=== PATIENT | female | born 1980 | race Caucasian/White ===

== ENCOUNTER 2023-02-06 07:14 | Emergency (ER) | payer BC ==
--- NOTE | 2023-02-06 07:45 | ERPHSYRPT ---
- History of Present Illness Source: patient Exam Limitations: other (Poor historian) Patient Subjective Stated Complaint: pt here for "dizzy spells" off and on for weeks, was seen by family doc and eye dr. she states it is worse, she states she feels unsteady when moves head to fast, Triage Nursing Assessment: pt alert,drove self here, walked in, resp easy, skin w/d/p. no edema, moves all ext well Physician History: 42 yo Wf w intermittent dizziness x 1 month. Pt denies focal weakness/headache/otalgia/fever/decreased hearing/palpitations/chest pain. She has seen her physician about this and states that "he has done nothing for her." and has also seen her "eye doctor." Pt suffers from chronic back pain. Timing/Duration: other (1+ month) Character of Deficits: other (Dizzy) Deficits: no difficulties Baseline/Normal Cognition: alert 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 Current Cognition: alert 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 Baseline Gait: walks w/o assistance Associated Symptoms: denies symptoms Allergies/Adverse Reactions: amoxicillin [From Augmentin] Allergy (Verified 02/06/23 07:28) clavulanic acid [From Augmentin] Allergy (Verified 02/06/23 07:28) Home Medications: Celecoxib 200 mg PO DAILY 02/06/23 [History] Furosemide 40 mg [Lasix 40 MG] 40 mg PO DAILY 02/06/23 [History] Oxycodone HCl/Acetaminophen [Oxycodone-Acetaminophn 7.5-325] 1 ea TID 02/06/23 [History] Phentermine HCl 1 ea DAILY 02/06/23 [History] Potassium Citrate [Potassium Citrate ER] 20 meq PO DAILY 02/06/23 [History] Hx Tetanus, Diphtheria Vaccination/Date Given: No Hx Influenza Vaccination/Date Given: No Hx Pneumococcal Vaccination/Date Given: No Immunizations Up to Date: Yes Travel Risk - International Travel Have you traveled outside of the country in past 3 weeks: No - Coronavirus Screening Are you exhibiting any of the following symptoms?: No - Vaccine Status Have you recieved a Covid-19 vaccination: No 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 - Vaccination Dates Date of 2cond Vaccination (if applicable): 2020 - Review of Systems Constitutional: No Symptoms Eyes: No Symptoms Ears, Nose, & Throat: No Symptoms Respiratory: No Symptoms Cardiac: No Symptoms Abdominal/Gastrointestinal: No Symptoms Genitourinary Symptoms: No Symptoms Musculoskeletal: No Symptoms Skin: No Symptoms Psychological: No Symptoms Endocrine: No Symptoms Hematologic/Lymphatic: No Symptoms Immunological/Allergic: No Symptoms - Past Medical History Pertinent Past Medical History: No Neurological History: No Pertinent History ENT History: No Pertinent History Cardiac History: No Pertinent History Respiratory History: No Pertinent History Endocrine Medical History: No Pertinent History Musculoskeletal History: No Pertinent History GI Medical History: No Pertinent History History: No Pertinent History Psycho-Social History: No Pertinent History Female Reproductive Disorders: No Pertinent History - Past Surgical History Past Surgical History: No Gastrointestinal: Cholecystectomy Female Surgical History: Lumpectomy Other Surgical History: carpal tunnel, ulna nerve repair - Social History Smoking Status: Current every day smoker Exposure to second hand smoke: No Drug Use: none Patient Lives Alone: No - Female History Hx Last Menstrual Period: none Hx Now: No - Nursing Vital Signs Nursing Vital Signs: Initial Vital Signs Blood Pressure 144/98 02/06/23 07:23 O2 Sat by Pulse Oximetry 99 02/06/23 07:23 Pain Scale Pain Intensity 0 - Jareth Coma Scale Best Eye Response ([place]): (4) open spontaneously Best Verbal Response ([place]): (5) oriented Best Motor Response ([place]): (6) obeys commands [place] Total: 15 - Physical Exam General Appearance: no apparent distress Eye Exam: bilateral eye: normal inspection, PERRL, EOMI Ears, Nose, Throat Exam: normal ENT inspection, TMs normal, pharynx normal, mois t mucous membranes Neck Exam: normal inspection, non-tender, supple, full range of motion, No meningismus, No mass, No Brudzinski, No Kernig's Respiratory: normal breath sounds, lungs clear, airway intact Cardiovascular: regular rate/rhythm, normal heart sounds, normal peripheral pulses, capillary refill <2 sec, No murmur Gastrointestinal: soft, normal bowel sounds, No tenderness Back Exam: normal inspection, normal range of motion, No CVA tenderness, No vertebral tenderness Extremity Exam: normal inspection, normal range of motion, pelvis stable Peripheral Pulses: carotid (R): 2+, carotid (L): 2+ Mental Status: alert, 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, 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 Exam: normal hearing, normal speech, PERRL Coordination/Gait: normal gait, negative Romberg's sign Motor/Sensory: no motor deficit, no sensory deficit, no pronator drift, negative Babinski's sign DTR: bicep (R): 2+, bicep (L): 2+ Skin Exam: normal color, warm, dry - Course EKG Interpreted by Me: RATE (NSR/Rate75/Normal QT-QTc/Flat Twaves/No acute ST segment changes) - CT Exams Head CT Interpretation: Discussed w/radiologist (CT-CTA head nothing acute) Other CT Interpretation: Discussed w/radiologist (CTA of neck nothing acute/L thyroid nodule) Ordered Tests: Active Orders 24 hr Category Date Time Status EKG-ER Only STAT Care 02/06/23 07:[address] ANGIOGRAPHY NECK [CT] Stat Exams 02/06/23 07:37 Completed CTA HEAD W AND/OR WO CONTRAST [CT] Stat Exams 02/06/23 07:36 Completed CBC W DIFF Stat Lab 02/06/23 07:30 Completed CMP Stat Lab 02/06/23 07:30 Completed TROPONIN Q4H Lab 02/06/23 07:30 Completed TROPONIN Q4H Lab 02/06/23 11:45 Ordered TROPONIN Q4H Lab 02/06/23 15:45 Ordered Medication Summary Discontinued Medications Generic Name Dose Route Start Last Admin Trade Name Freq PRN Reason Stop Dose Admin Ondansetron HCl 4 mg 02/06/23 07:59 02/06/23 08:01 Zofran 4 Mg/Udtablet Orally Disintegrating PO 02/06/23 08:00 4 mg STAT ONE Administration Ondansetron HCl Confirm 02/06/23 08:00 Zofran 4 Mg/Udtablet Orally Disintegrating Administered 02/06/23 08:01 Dose 4 mg .ROUTE .STK-MED ONE Potassium Chloride 40 meq 02/06/23 08:37 02/06/23 08:42 Potassium Chloride Tab 10 Meq Tab PO 02/06/23 08:38 40 meq STAT ONE Administration Potassium Chloride Confirm 02/06/23 08:41 Potassium Chloride Tab 10 Meq Tab Administered 02/06/23 08:42 Dose 20 meq PO .STK-MED ONE Lab/Rad Data: Laboratory Result Diagrams 02/06/23 07:30 02/06/23 07:30 Laboratory Results 02/06/23 02/06/23 02/06/23 Range/Units 07:30 07:30 07:30 WBC 6.7 (4.0-10.5) x10^3/uL RBC 5.08 (4.1-5.4) x10^6/uL Hgb 15.4 (12.0-16.0) g/dL Hct 45.4 (35-47) % MCV 89.4 (78-100) fL MCH 30.3 (26-32) pg MCHC 33.9 (32-36) g/dL RDW 13.2 (11.5-14.0) % Plt Count 256 (150-450) x10^3/uL MPV 10.0 (7.5-11.0) fL Gran % 61.5 (36.0-66.0) % Immature Gran % (Auto) 0.4 (0.00-0.4) % Nucleat RBC Rel Count 0.0 (0.00-0.1) % Eos # (Auto) 0.13 (0-0.5) x10^3/uL Immature Gran # (Auto) 0.03 (0.00-0.03) x10^3u/L Absolute Lymphs (auto) 2.01 (1.0-4.6) x10^3/uL Absolute Monos (auto) 0.38 (0.0-1.3) x10^3/uL Absolute Nucleated RBC 0.00 (0.00-0.01) x10^3u/L Lymphocytes % 29.9 (24.0-44.0) % Monocytes % 5.7 (0.0-12.0) % Eosinophils % 1.9 (0.00-5.0) % Basophils % 0.6 (0.0-0.4) % Absolute Granulocytes 4.13 (1.4-6.9) x10^3/uL Basophils # 0.04 (0-0.4) x10^3/uL Sodium 139 (137-145) mmol/L Potassium 3.0 L* (3.5-5.1) mmol/L Chloride 103 (98-107) mmol/L Carbon Dioxide 22 (22-30) mmol/L Anion Gap 17.8 H (5-15) MEQ/L BUN 10 (7-17) mg/dL Creatinine 0.95 (0.52-1.04) mg/dL Estimated GFR > 60.0 ML/MIN Glucose 98 (74-106) mg/dL Calcium 9.1 (8.4-10.2) mg/dL Total Bilirubin 1.00 (0.2-1.3) mg/dL AST 36 (14-36) U/L ALT 38 H (0-35) U/L Alkaline Phosphatase 81 (38-126) U/L Troponin I < 0.012 (0.000-0.034) ng/mL Serum Total Protein 8.4 H (6.3-8.2) g/dL Albumin 4.4 (3.5-5.0) g/dL - Progress Progress Note: 02/06/23 10:33 Nursing note and vital signs reviewed No food or housing insecurities noted Additional history per spouse who arrived later All labs reviewed and shared w pt/ CT/CTA results reviewed and shared w pt/ 40 mEq po KCl given which pt spit out Dizziness most likely medication side effects Medical Desision Making - Independent Historian Additional History obtained from: Spouse - Diagnostic Testing Diagnostic test were ordered, analyzed, and reviewed by me: Yes Radiological Interpretation: Reviewed by me - Risk of complications The pt has a mod risk of morbidity or mortality based on: Need for prescription drug management - Departure Departure Disposition: Home Clinical Impression: Hypokalemia, Dizziness Condition: Stable Critical Care Time: No Referrals: MARK ROB [Primary Care Provider] - Follow up/PCP as directed Instructions: Hypokalemia (DC), Dizziness, Nonvertigo, (DC), Dealing with Dizziness from the Drugs You Take Additional Instructions: Follow up with your family MD Start potassium twice a day for 1 week Meclizine as needed for dizziness Return to ER as needed Forms: Work/School Release Form Prescriptions: Meclizine HCl 25 mg [Antivert 25 mg] 25 mg PO QID PRN PRN #20 tablet PRN Reason: Dizziness Potassium Chloride 40 meq PO BID 7 Days #210 ml
[2023-02-06 07:53] LABS: Absolute Neutrophil Ct (ANC) 4.13 x10^3/uL (1.4-6.9); BASOPHIL % 0.6 % (0.0-0.4); Basophil (Absolute #) 0.04 x10^3/uL (0-0.4); Eosinophil % 1.9 % (0.00-5.0); Eosinophil (Absolute #) 0.13 x10^3/uL (0-0.5); Hematocrit 45.4 % (35-47); Hemoglobin 15.4 g/dL (12.0-16.0); IMMATURE GRAN # 0.03 x10^3u/L (0.00-0.03); IMMATURE GRAN % 0.4 % (0.00-0.4); Lymphocyte (Absolute #) 2.01 x10^3/uL (1.0-4.6); Lymphocytes % 29.9 % (24.0-44.0); Mean Cell Volume 89.4 fL (78-100); Mean Corpuscular Hemoglobin 30.3 pg (26-32); Mean Corpuscular Hgb Concent. 33.9 g/dL (32-36); Monocyte (Absolute #) 0.38 x10^3/uL (0.0-1.3); Monocytes % 5.7 % (0.0-12.0); Neutrophil % 61.5 % (36.0-66.0); Platelet Count 256 x10^3/uL (150-450); Red Blood Count 5.08 x10^6/uL (4.1-5.4); Red Cell Distribution Width 13.2 % (11.5-14.0); White Blood Count 6.7 x10^3/uL (4.0-10.5)
[2023-02-06] MEDS ORDERED: ZOFRAN ODT 4 MG PO ONE (07:59)
[2023-02-06] MEDS ORDERED: ZOFRAN ODT 4 MG ONE (08:00)
[2023-02-06 08:10] LABS: ALBUMIN 4.4 g/dL (3.5-5.0); ALKALINE PHOSPHATASE 81 U/L (38-126); ANION GAP 17.8 MEQ/L (5-15); BLOOD UREA NITROGEN 10 mg/dL (7-17); CHLORIDE 103 mmol/L (98-107); Calcium 9.1 mg/dL (8.4-10.2); Carbon Dioxide 22 mmol/L (22-30); Creatinine 1 0.95 mg/dL (0.52-1.04); EST GLOMERULAR FILTRATION RATE > 60.0 ML/MIN; Glucose 98 mg/dL (74-106); SGOT/AST 36 U/L (14-36); SGPT/ALT 38 U/L (0-35); SODIUM 139 mmol/L (137-145); Total Protein 8.4 g/dL (6.3-8.2)
[2023-02-06] MEDS ORDERED: Klor Con PO ONE ×2 (08:37→08:41)
[2023-02-06 09:08] VITALS: BP 119/76; O2SAT 100
--- NOTE | 2023-02-06 09:24 | XRAY ---
Indication: Dizziness. Conventional contrast enhanced CTA neck performed using 100 cc Isovue 370 contrast. 2-D sagittal and coronal reformatted images obtained. Additional 3-D reformatted images obtained using separate workstation. Comparison: None Visualized aortic arch normal in course and caliber. There is anatomic variant for bovine arch with common origin right brachiocephalic and left common carotid artery, both widely patent. Also widely patent branching left subclavian artery. Left/right common carotid, carotid bulb, internal carotid, and external carotid arteries are normal in CTA appearance. Left and right vertebral arteries are also normal in CTA appearance. Visualized soft tissues demonstrates 1.1 cm left thyroid hypodense nodule versus cyst. Small centimeter/subcentimeter cervical and submandibular lymph nodes bilaterally, none pathologically enlarged. Parotid and submandibular glands are bilaterally symmetric. Supra/infra glottic airway widely patent. Visualized osseous structures intact. Lung apices demonstrate moderate pulmonary emphysema. Patient is edentulous. Impression: 1. Normal CTA neck with contrast exam. 2. Incidental left thyroid hypodense nodule versus cyst and pulmonary emphysema.
--- NOTE | 2023-02-06 09:28 | XRAY ---
Indication: Dizziness. Initial CT head performed without contrast. Then conventional contrast enhanced CTA head performed using 100 cc Isovue 370 contrast. 2-D sagittal and coronal reformatted images obtained. Additional 3-D reformatted images obtained using separate workstation. Comparison: None CT head without contrast demonstrates age-appropriate global atrophy and minimal periventricular degenerative micro-ischemia bilaterally. No acute intracranial hemorrhage, abnormal extra-axial fluid collection, or mass effect. Fourth ventricle is midline without hydrocephalus. Briceno-white matter differentiation preserved. Bony calvarium intact. Visualized paranasal sinuses and mastoid air cells are clear. CTA images demonstrate distal internal carotid arteries bilaterally symmetric without critical stenosis, obstruction, or AV malformation. Normal carotid terminus with normal branching A1 and M1 segments bilaterally. More distal anterior cerebral and middle cerebral arteries are normal in CTA appearance bilaterally. Posterior circulation demonstrates normal CTA appearance to the distal left/right vertebral arteries, basilar, left/right posterior cerebral, and left/right superior cerebellar arteries. Venous sinuses/drainage unremarkable. No abnormal enhancing intra or extra-axial mass. Impression: 1. CT head without contrast demonstrating atrophy and degenerative micro-ischemia within normal limits for patient's age. No acute intracranial abnormalities. 2. Normal CTA head with contrast exam.
[2023-02-06 10:00] VITALS: PULSE 70
== END 2023-02-06 10:00 | disposition home or self-care (01) ==
LOC: ED 07:14
DX: E87.6 Hypokalemia (principal); R42 Dizziness and giddiness; Z79.891 Long term (current) use of opiate analgesic; Z79.899 Other long term (current) drug therapy; Z72.0 Tobacco use
CPT/HCPCS: 36415; 70496; 70498; 80053; 84484; 85025; 93005; 99284; Q0162; A9270-GY

== ENCOUNTER 2023-06-13 11:13 | Day surgery (SDC) | payer BC ==
[2023-06-13] MEDS ORDERED: LIDOCAINE HCL 2% 100 MG/5 ML IJ ONE (11:14)
[2023-06-13 12:25] LABS: HCG URINE TEST NEGATIVE (NEGATIVE)
[2023-06-13] MEDS ORDERED: DIPRIVAN 200 MG/20 ML IV ONE ×2 (13:37→13:51)
[2023-06-13] MEDS ORDERED: Xylocaine-Mpf 2% 5 Ml Vial ONE (13:38)
[2023-06-13] MEDS ORDERED: Lactated Ringers 1,000 ML IV ONE (14:29)
--- NOTE | 2023-06-13 16:25 | XRAY ---
Indication: Bilateral L4-S1 MBB. Intraoperative fluoroscopy provided for 14 seconds. Single digital spot image submitted for interpretation demonstrates posterior needle tips projecting over the expected left and right L4-S1 nerve roots. Correlate with intraoperative findings/report.
--- NOTE | 2023-06-13 16:37 | XRAY ---
14 seconds of fluoroscopy was used in surgery for a bilateral L4-S1 MBB.
== END 2023-06-13 14:05 | disposition home or self-care (01) ==
LOC: SDC-PAIN 11:13
PROVIDERS: ATTEND Psychiatry & Neurology Pain Medicine
DX: M47.816 Spondylosis without myelopathy or radiculopathy, lumbar region (principal)
CPT/HCPCS: 64493; 64494; 72020; 77002; 81025; J2704

== ENCOUNTER 2023-07-25 12:36 | Day surgery (SDC) | payer BC ==
[2023-07-25] MEDS ORDERED: BUPIVACAINE 0.5% VIAL IJ ONE (12:37)
[2023-07-25 13:09] LABS: HCG URINE TEST NEGATIVE (NEGATIVE)
[2023-07-25] MEDS ORDERED: DIPRIVAN 200 MG/20 ML IV ONE ×2 (14:10→14:20)
--- NOTE | 2023-07-25 14:54 | XRAY ---
Indication: Bilateral L4-S1 MBB. Intraoperative fluoroscopy provided for 7 seconds. Single digital spot image submitted for interpretation demonstrates posterior needle tips projecting over the expected left and right L4-S1 nerve roots. Correlate with intraoperative findings/report.
[2023-07-25] MEDS ORDERED: Lactated Ringers 1,000 ML IV ONE (15:27)
--- NOTE | 2023-07-26 10:59 | XRAY ---
7 seconds of fluoroscopy was used in surgery for a bilateral L4-S1 MBB.
== END 2023-07-25 14:43 | disposition home or self-care (01) ==
LOC: SDC-PAIN 12:36
PROVIDERS: ATTEND Psychiatry & Neurology Pain Medicine
DX: M47.816 Spondylosis without myelopathy or radiculopathy, lumbar region (principal)
CPT/HCPCS: 64493; 64494; 72020; 77002; 81025; J2704

== ENCOUNTER 2023-08-08 10:46 | Day surgery (SDC) | payer BC ==
[2023-08-08] MEDS ORDERED: BUPIVACAINE 0.5% VIAL IJ ONE (10:47)
[2023-08-08] MEDS ORDERED: XYLOCAINE-MPF 1% 5ML SDV IJ ONE (10:47)
[2023-08-08] MEDS ORDERED: Depo-Medrol 40 MG/ML IM ONE (10:47)
[2023-08-08 12:14] LABS: HCG URINE TEST NEGATIVE (NEGATIVE)
[2023-08-08] MEDS ORDERED: DIPRIVAN 200 MG/20 ML IV ONE ×2 (13:01→13:08)
--- NOTE | 2023-08-08 15:02 | XRAY ---
Indication: Left L4-S1 RFA. Intraoperative fluoroscopy provided for 23 seconds. 4 digital spot images submitted for interpretation demonstrates posterior needle tips projecting over the expected left L4-S1 nerve roots. Correlate with intraoperative findings/report.
--- NOTE | 2023-08-08 15:17 | XRAY ---
23 seconds of fluoroscopy was used in surgery for a left L4-S1 RFA.
[2023-08-08] MEDS ORDERED: Lactated Ringers 1,000 ML IV ONE (16:27)
== END 2023-08-08 13:35 | disposition home or self-care (01) ==
LOC: SDC-PAIN 10:46
PROVIDERS: ATTEND Psychiatry & Neurology Pain Medicine
DX: M47.817 Spondylosis without myelopathy or radiculopathy, lumbosacral region (principal)
CPT/HCPCS: 64635; 64636; 72100; 77002; 81025; J1030; J2704

== ENCOUNTER 2023-08-14 07:35 | Day surgery (SDC) | payer BC ==
[2023-08-14] MEDS ORDERED: XYLOCAINE-MPF 1% 5ML SDV IJ ONE (07:36)
[2023-08-14] MEDS ORDERED: Depo-Medrol 40 MG/ML IM ONE (07:36)
[2023-08-14] MEDS ORDERED: BUPIVACAINE 0.5% VIAL IJ ONE (07:36)
[2023-08-14 08:26] LABS: HCG URINE TEST NEGATIVE (NEGATIVE)
[2023-08-14] MEDS ORDERED: DIPRIVAN 200 MG/20 ML IV ONE ×2 (09:49→09:57)
[2023-08-14] MEDS ORDERED: Lactated Ringers 1,000 ML IV ONE (11:18)
--- NOTE | 2023-08-14 12:15 | XRAY ---
Indication: Right L4-S1 RFA. Intraoperative fluoroscopy provided for 24 seconds. 4 digital spot image submitted for interpretation demonstrates posterior needle tips projecting over expected right L4-S1 nerve roots. Correlate with intraoperative findings/report.
--- NOTE | 2023-08-14 12:22 | XRAY ---
24 seconds of fluoroscopy was used in surgery for a right L4-S1 RFA.
== END 2023-08-14 10:18 | disposition home or self-care (01) ==
LOC: SDC-PAIN 07:35
PROVIDERS: ATTEND Psychiatry & Neurology Pain Medicine
DX: M47.817 Spondylosis without myelopathy or radiculopathy, lumbosacral region (principal)
CPT/HCPCS: 64635; 64636; 72100; 77002; 81025; J1030; J2704

== ENCOUNTER 2024-04-15 09:50 | Day surgery (SDC) | payer BC ==
[2024-04-15] MEDS ORDERED: Sodium Chloride 0.9(Preservative Free) 10 ML IJ ONE (09:51)
[2024-04-15] MEDS ORDERED: Decadron 4 MG INJ IV ONE (09:51)
[2024-04-15 11:00] LABS: HCG URINE TEST NEGATIVE (NEGATIVE)
[2024-04-15] MEDS ORDERED: DIPRIVAN 200 MG/20 ML IV ONE (12:05)
[2024-04-15] MEDS ORDERED: MORPHINE SULFATE 2 MG INJ ONE ×2 (12:22→12:36)
--- NOTE | 2024-04-15 12:42 | XRAY ---
Indication: Left L4-S1 transforaminal LISSA. Intraoperative fluoroscopy provided for 34 seconds. 4 digital spot images submitted for interpretation demonstrates posterior needle tips projecting over the expected left L4 and L5 nerve roots. Small amount of contrast injected for needle tip placement. Correlate with intraoperative findings/report.
[2024-04-15] MEDS ORDERED: Lactated Ringers 1,000 ML IV ONE (13:13)
--- NOTE | 2024-04-15 14:37 | XRAY ---
34 seconds of fluoroscopy was used in surgery for a left L4-S1 transforaminal LISSA.
== END 2024-04-15 13:03 ==
LOC: SDC-PAIN 09:50
PROVIDERS: ATTEND Psychiatry & Neurology Pain Medicine
DX: M54.16 Radiculopathy, lumbar region (principal)
CPT/HCPCS: 64483; 64484; 72100; 77003; 81025; J1100; J2270; J2704; Q9966

== ENCOUNTER 2024-04-16 19:08 | Emergency (ER) | payer BC ==
[2024-04-16 19:20] VITALS: TEMP 98.7
[2024-04-16] MEDS ORDERED: Sodium Chloride 0.9% 1000 ML 1,000 ML ONE (19:44)
[2024-04-16] MEDS ORDERED: TYLENOL 325 MG ONE (19:44)
[2024-04-16] MEDS ORDERED: BENADRYL 50 MG/ML ONE (19:44)
[2024-04-16] MEDS ORDERED: Reglan 10 MG/2 ML ONE (19:44)
[2024-04-16] MEDS: Reglan 10 MG/2 ML IV ONE (20:01)
[2024-04-16] MEDS: Sodium Chloride 0.9% 1000 ML 1,000 ML IV STA (20:01)
[2024-04-16] MEDS: BENADRYL 50 MG/ML IV ONE (20:03)
[2024-04-16] MEDS: TYLENOL 325 MG PO ONE (20:04)
--- NOTE | 2024-04-16 20:05 | ERPHSYRPT ---
- History of Present Illness Time Seen by Provider: 04/16/24 19:28 Patient Subjective Stated Complaint: Headache Triage Nursing Assessment: Pt brought to ED by with c/o a 2/10 headache. Patient took oxycodone 7.5mg x1 before arrival. Pt stated that she has had this headache since her Left tramnsforaminal epidural steroid injection yesterday. hypertensive, rates pain 2/10, pulses normal, skin w/n/d, gait steady, pt doesn't appear to be in any distress. Physician History: 44-year-old female with history of chronic back pain who had epidural injections done by Dr. Andrews yesterday presented in the ER with frontal headache since last night. Patient reports moderate intensity dull aching to sharp headache whenever she tries to get up and ambulate, gets better with lying down. Denies any difficulty movements of neck. No visual disturbance. No numbness tingling or focal weakness. Currently patient is lying in the bed and rates her pain 2/10 intensity. Denies any low back pain which is improved as compared to before injections. No numbness tingling or focal weakness. No fever or chills reported. Allergies/Adverse Reactions: amoxicillin [From Augmentin] Allergy (Verified 04/16/24 19:27) clavulanic acid [From Augmentin] Allergy (Verified 04/16/24 19:27) Penicillins Allergy (Verified 04/16/24 19:27) Sulfa (Sulfonamide Antibiotics) Allergy (Verified 04/16/24 19:27) Home Medications: Celecoxib 200 mg PO DAILY 02/06/23 [History] Furosemide 40 mg [Lasix 40 MG] 40 mg PO DAILY 02/06/23 [History] Oxycodone HCl/Acetaminophen [Oxycodone-Acetaminophn 7.5-325] 1 ea TID 02/06/23 [History] Phentermine HCl 1 ea DAILY 02/06/23 [History] Potassium Citrate [Potassium Citrate ER] 20 meq PO DAILY 02/06/23 [History] Hx Tetanus, Diphtheria Vaccination/Date Given: No Hx Influenza Vaccination/Date Given: No Hx Pneumococcal Vaccination/Date Given: No Travel Risk - International Travel Have you traveled outside of the country in past 3 weeks: No - Emerging Infectious Disease Are you exhibiting symptoms associated with any current EIDs: No - Review of Systems Constitutional: No Symptoms Eyes: No Symptoms Ears, Nose, & Throat: No Symptoms Respiratory: No Symptoms Cardiac: No Symptoms Abdominal/Gastrointestinal: No Symptoms Genitourinary Symptoms: No Symptoms Musculoskeletal: Arthralgias, Back Pain Skin: No Symptoms Neurological: Headache Psychological: No Symptoms Endocrine: No Symptoms Hematologic/Lymphatic: No Symptoms Immunological/Allergic: No Symptoms - Past Medical History Pertinent Past Medical History: No Neurological History: No Pertinent History ENT History: No Pertinent History Cardiac History: No Pertinent History Respiratory History: No Pertinent History Endocrine Medical History: No Pertinent History Musculoskeletal History: No Pertinent History GI Medical History: No Pertinent History History: No Pertinent History Psycho-Social History: No Pertinent History Female Reproductive Disorders: No Pertinent History - Past Surgical History Past Surgical History: No Gastrointestinal: Cholecystectomy Female Surgical History: Lumpectomy Other Surgical History: carpal tunnel, ulna nerve repair - Female History Hx Last Menstrual Period: unk Hx Now: No - Social History Smoking Status: Current every day smoker Exposure to second hand smoke: No Drug Use: none Patient Lives Alone: No - Social Determinants of Health Will the patient participate in the screening: Yes Do you worry about a steady place to live?: No Do you have any problems with any of the following?: No known problems In the past 12 months,have you had to go without utilities?: No Transportation Issues: No Has anyone in your support network made you feel unsafe?: No Have you or anyone in your house had to go without enough: No - Nursing Vital Signs Nursing Vital Signs: Initial Vital Signs Temperature 98.7 F 04/16/24 19:11 Pain Scale Pain Intensity 0 - Physical Exam General Appearance: no apparent distress, alert Eye Exam: PERRL/EOMI Ears, Nose, Throat Exam: normal ENT inspection Neck Exam: normal inspection, non-tender, supple, full range of motion Respiratory Exam: normal breath sounds, lungs clear Cardiovascular Exam: regular rate/rhythm, normal heart sounds Gastrointestinal/Abdominal Exam: soft, normal bowel sounds, No tenderness Extremity Exam: normal inspection Mental Status Exam: 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, 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, 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: normal hearing, normal speech, PERRL Coordination/Gait Exam: normal finger to nose, normal gait, normal cerebellar function, negative Romberg's sign Motor/Sensory Exam: no motor deficit, no sensory deficit, no pronator drift, negative Babinski's sign Skin Exam: normal color SpO2 Interpretation: normal SpO2: 96 O2 Delivery: Room Air Ordered Tests: Active Orders 24 hr Category Date Time Status IV Insertion STAT Care 04/16/24 19:29 Active HEAD WITHOUT CONTRAST [CT] Stat Exams 04/16/24 19:57 Taken Medication Summary Discontinued Medications Generic Name Dose Route Start Last Admin Trade Name Chava PRN Reason Stop Dose Admin Acetaminophen 975 mg 04/16/24 19:29 04/16/24 20:04 Acetaminophen 325 Mg Tablet PO 04/16/24 19:30 975 mg STAT ONE Administration Acetaminophen Confirm 04/16/24 19:44 Acetaminophen 325 Mg Tablet Administered 04/16/24 19:45 Dose 975 mg .ROUTE .STK-MED ONE Diphenhydramine HCl 25 mg 04/16/24 19:29 04/16/24 20:03 Diphenhydramine Hcl 50 Mg/Ml Vial IV 04/16/24 19:30 25 mg STAT ONE Administration Diphenhydramine HCl Confirm 04/16/24 19:44 Diphenhydramine Hcl 50 Mg/Ml Vial Administered 04/16/24 19:45 Dose 50 mg .ROUTE .STK-MED ONE Sodium Chloride 1,000 mls @ 999 mls/hr 04/16/24 19:29 04/16/24 21:12 Sodium Chloride 0.9% 1000 Ml IV 04/16/24 20:29 Infused .Q1H1M STA Infusion Sodium Chloride Confirm 04/16/24 19:44 Sodium Chloride 0.9% 1000 Ml Administered 04/16/24 19:45 Dose 1,000 mls @ ud .ROUTE .STK-MED ONE Ketorolac Tromethamine 30 mg 04/16/24 21:03 04/16/24 21:10 Ketorolac Tromethamine 30 Mg/Ml Inj IV 04/16/24 21:04 30 mg STAT ONE Administration Ketorolac Tromethamine Confirm 04/16/24 21:08 Ketorolac Tromethamine 30 Mg/Ml Inj Administered 04/16/24 21:09 Dose 30 mg .ROUTE .STK-MED ONE Metoclopramide HCl 10 mg 04/16/24 19:29 04/16/24 20:01 Metoclopramide Hcl 10 Mg/2 Ml Vial IV 04/16/24 19:30 10 mg STAT ONE Administration Metoclopramide HCl Confirm 04/16/24 19:44 Metoclopramide Hcl 10 Mg/2 Ml Vial Administered 04/16/24 19:45 Dose 10 mg .ROUTE .STK-MED ONE - Progress Progress: improved, re-examined Air Movement: good Progress Note: 04/16/24 21:21 44-year-old is evaluated in the ER with complaints of headache started yesterday with no previous history of headache. Patient does have epidural injections done yesterday by Dr. Andrews. She has nonfocal neuroexam. Her headache pattern is typical for spinal headache. CT head is negative. She is given fluids and symptomatic treatment for headache, on reevaluation she is feeling much improved. Her headache is almost completely resolved. I do not think patient needs a blood patch. Recommended increase caffeine intake, increase hydration and outpatient follow-up. Discussed signs symptoms of worsening needing return to ER which she seems understanding. Stable for discharge. Blood Culture(s) Obtained: No Antibiotics given: No Counseled pt/family regarding: diagnosis, need for follow-up, rad results Medical Desision Making - Diagnostic Testing Diagnostic test were ordered, analyzed, and reviewed by me: Yes Radiological Interpretation: Reviewed by me, Teleradiologist Report (No acute findings per preliminary report) - Risk of complications The pt has a mod risk of morbidity or mortality based on: Need for prescription drug management - Departure Departure Disposition: Home Clinical Impression: Spinal headache Condition: Stable Critical Care Time: No Referrals: MARK ROB [Primary Care Provider] - Follow up with PCP 1 day Instructions: Spinal headache, Headache, Adult (DC) Additional Instructions: Take Tylenol/ibuprofen as needed. Increase caffeine intake. Increase fluid intake. Follow-up with your primary care and also with Dr. Andrews if symptoms get worse. Return to ER for any worsening of headache or if having neck pain, numbness tingling focal weakness, fever chills etc.
[2024-04-16 20:40] VITALS: PULSE 86; RESP 19
[2024-04-16 21:03] VITALS: BP 126/85
[2024-04-16] MEDS ORDERED: TORAdol 30 mg Injection ONE (21:08)
[2024-04-16] MEDS: TORAdol 30 mg Injection IV ONE (21:10)
[2024-04-16 21:24] VITALS: O2SAT 96
--- NOTE | 2024-04-17 08:40 | XRAY ---
Indication: Headache. Multiple contiguous axial images obtained through the head without contrast. Comparison: None Age appropriate global atrophy and mild periventricular degenerative micro-ischemia bilaterally. No acute intracranial hemorrhage, abnormal extra-axial fluid collection, or mass effect. Fourth ventricle is midline without hydrocephalus. Bony calvarium intact. Visualized paranasal sinuses and mastoid air cells are clear. Impression: Atrophy and degenerative micro-ischemia within normal limits. No acute intracranial abnormalities.
== END 2024-04-16 21:34 | disposition home or self-care (01) ==
LOC: ED 19:08
DX: T88.59XA Other complications of anesthesia, initial encounter (principal); G44.40 Drug-induced headache, not elsewhere classified, not intractable; Z79.891 Long term (current) use of opiate analgesic; Z79.899 Other long term (current) drug therapy; Z72.0 Tobacco use
CPT/HCPCS: 36000; 70450; 96374; 96375; 99284; J1200; J1885; A9270-GY

== ENCOUNTER 2024-08-19 10:26 | Emergency (ER) | payer BC ==
[2024-08-19 11:03] VITALS: PULSE 68; TEMP 98.5; O2SAT 100
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
[2024-08-19] MEDS ORDERED: TORAdol 30 mg Injection ONE ×2 (11:36→11:41)
[2024-08-19] MEDS ORDERED: Norflex 60 MG/2 ML ONE (11:36)
[2024-08-19] MEDS: TORAdol 30 mg Injection IM ONE (11:40)
[2024-08-19] MEDS: Norflex 60 MG/2 ML IM ONE (11:40)
[2024-08-19 11:46] VITALS: BP 137/84
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
== END 2024-08-19 11:57 | disposition home or self-care (01) ==
LOC: ED 10:26
DX: M25.552 Pain in left hip (principal); R51.9 Headache, unspecified; M25.512 Pain in left shoulder; M54.2 Cervicalgia; M54.6 Pain in thoracic spine; V59.59XA Passenger in pick-up truck or van injured in collision with other motor vehicles in traffic accident, initial encounter
CPT/HCPCS: 71046; 73030; 73502; 96372; 99285; J1885; J2360

== ENCOUNTER 2024-08-24 07:51 | Emergency (ER) | payer BC ==
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
[2024-08-24 08:18] VITALS: RESP 19; TEMP 97.8
[2024-08-24] MEDS ORDERED: Sterile H2O 10 ml IJ ONE (08:25)
[2024-08-24] MEDS ORDERED: Norflex 60 MG/2 ML ONE (08:25)
[2024-08-24] MEDS ORDERED: ZOFRAN ODT 4 MG ONE (08:25)
[2024-08-24] MEDS ORDERED: Hydromorphone 1 mg/ml Injection ONE (08:25)
[2024-08-24] MEDS ORDERED: solu-MEDROL ONE (08:26)
[2024-08-24] MEDS: ZOFRAN ODT 4 MG PO ONE (08:27)
[2024-08-24] MEDS: Hydromorphone 1 mg/ml Injection IM ONE (08:29)
[2024-08-24] MEDS: Norflex 60 MG/2 ML IM ONE (08:32)
[2024-08-24] MEDS: solu-MEDROL 125 MG, Sterile H2O 10 ml 2 ML IM ONE (08:33)
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
[2024-08-24 10:34] VITALS: BP 179/80; PULSE 75; O2SAT 97
== END 2024-08-24 10:40 | disposition home or self-care (01) ==
LOC: ED 07:51
DX: M25.512 Pain in left shoulder (principal); M54.2 Cervicalgia; J01.80 Other acute sinusitis; R51.9 Headache, unspecified; Z79.52 Long term (current) use of systemic steroids; Z79.891 Long term (current) use of opiate analgesic; Z79.899 Other long term (current) drug therapy; Z72.0 Tobacco use
CPT/HCPCS: 70450; 72125; 73200; 96372; 99284; 99285; J1171; J2360; J2919; Q0162

== ENCOUNTER 2024-09-01 15:42 | Emergency (ER) | payer BC ==
[2024-09-01 17:14] VITALS: RESP 18; TEMP 96.3
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
[2024-09-01] MEDS ORDERED: ZOFRAN ODT 4 MG ONE (18:27)
[2024-09-01] MEDS ORDERED: Norflex 60 MG/2 ML ONE (18:27)
[2024-09-01] MEDS ORDERED: Sterile H2O 10 ml IJ ONE (18:27)
[2024-09-01] MEDS ORDERED: Hydromorphone 1 mg/ml Injection ONE (18:28)
[2024-09-01] MEDS ORDERED: solu-MEDROL ONE (18:28)
[2024-09-01] MEDS: ZOFRAN ODT 4 MG PO ONE (18:39)
[2024-09-01] MEDS: Norflex 60 MG/2 ML IM ONE (18:44)
[2024-09-01] MEDS: Hydromorphone 1 mg/ml Injection IM ONE (18:47)
[2024-09-01] MEDS: solu-MEDROL 125 MG, Sterile H2O 10 ml 2 ML IM ONE (18:53)
[2024-09-01] MEDS ORDERED: DELTASONE 20 MG ONE (19:08)
[2024-09-01] MEDS: DELTASONE 20 MG PO ONE (19:09)
[2024-09-01 19:17] VITALS: BP 134/75; PULSE 75; O2SAT 100
== END 2024-09-01 19:25 | disposition home or self-care (01) ==
LOC: ED 15:42
DX: M54.2 Cervicalgia (principal); M25.512 Pain in left shoulder; M79.602 Pain in left arm; V89.2XXA Person injured in unspecified motor-vehicle accident, traffic, initial encounter; Z79.891 Long term (current) use of opiate analgesic; Z79.899 Other long term (current) drug therapy; Z72.0 Tobacco use
CPT/HCPCS: 96372; 99283; 99284; J1171; J2360; J2919; Q0162; A9270-GY

== ENCOUNTER 2024-10-10 12:26 | Emergency (ER) | payer BC ==
[2024-10-10 12:39] VITALS: TEMP 97.6
[2024-10-10] MEDS ORDERED: ANTIVERT 25 MG ONE (13:09)
[2024-10-10] MEDS ORDERED: Sodium Chloride 0.9% 1000 ML 1,000 ML ONE (13:10)
[2024-10-10] MEDS: ANTIVERT 25 MG PO ONE (13:13)
[2024-10-10] MEDS: Sodium Chloride 0.9% 1000 ML 1,000 ML IV STA (13:13)
[2024-10-10 13:16] LABS: Absolute Neutrophil Ct (ANC) 5.93 x10^3/uL (1.56-6.13); BASOPHIL % 0.5 % (0.1-1.2); Basophil (Absolute #) 0.04 x10^3/uL (0.01-0.08); Eosinophil % 2.9 % (0.7-5.8); Eosinophil (Absolute #) 0.26 x10^3/uL (0.04-0.36); Hematocrit 40.4 % (34.1-44.9); Hemoglobin 14.3 g/dL (11.2-15.7); IMMATURE GRAN # 0.04 x10^3u/L (0.001-0.031); IMMATURE GRAN % 0.5 % (0.001-0.429); Lymphocyte (Absolute #) 2.01 x10^3/uL (1.18-3.74); Lymphocytes % 22.8 % (19.3-51.7); Mean Cell Volume 86.3 fL (79.4-94.8); Mean Corpuscular Hemoglobin 30.6 pg (25.6-32.2); Mean Corpuscular Hgb Concent. 35.4 g/dL (32.2-35.5); Monocyte (Absolute #) 0.54 x10^3/uL (0.24-0.86); Monocytes % 6.1 % (4.7-12.5); Neutrophil % 67.2 % (34.0-71.1); Platelet Count 251 x10^3/uL (182-369); Red Blood Count 4.68 x10^6/uL (3.93-5.22); Red Cell Distribution Width 14.3 % (11.7-14.4); White Blood Count 8.8 x10^3/uL (3.98-10.04)
--- NOTE | 2024-10-10 13:24 | ERPHSYRPT ---
- History of Present Illness Time Seen by Provider: 10/10/24 12:36 Source: patient Exam Limitations: no limitations Patient Subjective Stated Complaint: Pt c/o of weakness, nausea, dizziness, feels like she's going to pass out, reports that this has happened in the past but hasn't ever been diagnosed with anything Triage Nursing Assessment: Pt brought to the ER by her , hypertensive, denies pain, appears flushed, lightheaded walking into the ER room, pulses normal, no difficulty breathing, denies chest pain, doesn't appear to be in any distress Physician History: 44-year-old female presented in the ER with complains of sudden onset dizziness, lightheadedness almost an hour prior to arrival. Patient reports she feels going to pass out. Reports some palpitations/racing of heart earlier which is improved. Does report increasing dizziness with movements of head. Reports nausea with no vomiting. Patient also reported having similar symptoms couple of time in the past. Denies any focal numbness tingling or weakness. No slurring of speech or visual disturbance. Denies any chest pain or shortness of breath. No fever chills or sick contact reported. Allergies/Adverse Reactions: amoxicillin [From Augmentin] Allergy (Verified 10/10/24 12:40) clavulanic acid [From Augmentin] Allergy (Verified 10/10/24 12:40) Penicillins Allergy (Verified 10/10/24 12:40) Sulfa (Sulfonamide Antibiotics) Allergy (Verified 10/10/24 12:40) Home Medications: Furosemide 40 mg [Lasix 40 MG] 40 mg PO DAILY 02/06/23 [History] Oxycodone HCl/Acetaminophen [Oxycodone-Acetaminophn 7.5-325] 1 ea TID 02/06/23 [History] Ergocalciferol (Vitamin D2) [Vitamin D2] 1,250 mcg PO WEEKLY 08/19/24 [History] Gabapentin 800 mg PO TID 08/19/24 [History] Potassium Chloride [Klor-Con M20] 20 meq PO DAILY 08/19/24 [History] Baclofen 10 mg [Lioresal 10 mg] 10 mg PO BID 10/10/24 [History] Hydroxyzine HCl 25 mg [Atarax 25 mg] 25 mg PO BID 10/10/24 [History] Hx Tetanus, Diphtheria Vaccination/Date Given: Yes Hx Influenza Vaccination/Date Given: No Hx Pneumococcal Vaccination/Date Given: No Travel Risk - International Travel Have you traveled outside of the country in past 3 weeks: No - Emerging Infectious Disease Are you exhibiting symptoms associated with any current EIDs: No - Review of Systems Constitutional: Fatigue, Weakness Eyes: No Symptoms Ears, Nose, & Throat: No Symptoms Respiratory: No Symptoms Cardiac: Palpitations Abdominal/Gastrointestinal: No Symptoms Genitourinary Symptoms: No Symptoms Musculoskeletal: No Symptoms Skin: No Symptoms Neurological: Dizziness Psychological: No Symptoms Endocrine: No Symptoms Hematologic/Lymphatic: No Symptoms Immunological/Allergic: No Symptoms - Past Medical History Pertinent Past Medical History: No Neurological History: No Pertinent History ENT History: No Pertinent History Cardiac History: No Pertinent History Respiratory History: No Pertinent History Endocrine Medical History: No Pertinent History Musculoskeletal History: No Pertinent History GI Medical History: No Pertinent History History: No Pertinent History Psycho-Social History: No Pertinent History Female Reproductive Disorders: No Pertinent History - Past Surgical History Past Surgical History: No Gastrointestinal: Cholecystectomy Female Surgical History: Lumpectomy Other Surgical History: carpal tunnel, ulna nerve repair - Female History Hx Last Menstrual Period: unk Hx Now: (unkn) - Social History Smoking Status: Current every day smoker Exposure to second hand smoke: Yes Drug Use: none - Social Determinants of Health Will the patient participate in the screening: Yes Do you worry about a steady place to live?: No Do you have any problems with any of the following?: No known problems In the past 12 months,have you had to go without utilities?: No Transportation Issues: No Has anyone in your support network made you feel unsafe?: No Have you or anyone in your house had to go w/o enough food: No - Nursing Vital Signs Nursing Vital Signs: Initial Vital Signs Temperature 97.6 F 10/10/24 12:35 Pain Scale Pain Intensity 0 - Physical Exam General Appearance: no apparent distress Eye Exam: PERRL/EOMI Ears, Nose, Throat Exam: normal ENT inspection Neck Exam: normal inspection, non-tender, supple, full range of motion Respiratory Exam: normal breath sounds, lungs clear Cardiovascular Exam: regular rate/rhythm, normal heart sounds Gastrointestinal/Abdomen Exam: soft, normal bowel sounds, No tenderness Back Exam: normal inspection, normal range of motion Extremity Exam: normal inspection, normal range of motion Neurologic Exam: alert, 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, cooperative, 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, normal mood/affect, nml cerebellar function, nml station & gait, sensation nml, No motor deficits Skin Exam: normal color SpO2 Interpretation: normal SpO2: 96 O2 Delivery: Room Air - Course EKG Interpreted by Me: RATE (62), Sinus Rhythm, NORMAL AXIS, NORMAL INTERVALS, NORMAL QRS Ordered Tests: Active Orders 24 hr Category Date Time Status Woven Blind Loom Tender STAT Care 10/10/24 12:50 Active EKG-ER Only STAT Care 10/10/24 12:49 Active IV Insertion STAT Care 10/10/24 12:49 Active Orthostatic Vital Signs STAT Care 10/10/24 12:50 Active CHEST 1 VIEW (PORTABLE) Stat Exams 10/10/24 12:50 Taken HEAD WITHOUT CONTRAST [CT] Stat Exams 10/10/24 12:50 Completed CBC W DIFF Stat Lab 10/10/24 13:06 Completed CMP Stat Lab 10/10/24 13:06 Completed HCG QUALITATIVE, SERUM Stat Lab 10/10/24 13:06 Completed Lactic Acid Stat Lab 10/10/24 13:26 Completed MAGNESIUM Stat Lab 10/10/24 13:06 Completed NT PRO BNPII Stat Lab 10/10/24 13:06 Completed TROPONIN Q4H Lab 10/10/24 13:06 Completed TROPONIN Q4H Lab 10/10/24 17:00 Ordered TROPONIN Q4H Lab 10/10/24 21:00 Ordered Medication Summary Discontinued Medications Generic Name Dose Route Start Last Admin Trade Name Freq PRN Reason Stop Dose Admin Sodium Chloride 1,000 mls @ 999 mls/hr 10/10/24 12:49 10/10/24 14:25 Sodium Chloride 0.9% 1000 Ml IV 10/10/24 13:49 Infused .Q1H1M STA Infusion Sodium Chloride Confirm 10/10/24 13:10 Sodium Chloride 0.9% 1000 Ml Administered 10/10/24 13:11 Dose 1,000 mls @ ud .ROUTE .STK-MED ONE Meclizine HCl 25 mg 10/10/24 12:50 10/10/24 13:13 Meclizine Hcl 25 Mg Tablet PO 10/10/24 12:51 25 mg STAT ONE Administration Meclizine HCl Confirm 10/10/24 13:09 Meclizine Hcl 25 Mg Tablet Administered 10/10/24 13:10 Dose 25 mg .ROUTE .K-MED ONE Lab/Rad Data: Laboratory Result Diagrams 10/10/24 13:06 10/10/24 13:06 Laboratory Results 10/10/24 10/10/24 10/10/24 Range/Units 15:02 13:26 13:06 WBC (3.98-10.04) x10^3/uL RBC (3.93-5.22) x10^6/uL Hgb (11.2-15.7) g/dL Hct (34.1-44.9) % MCV (79.4-94.8) fL MCH (25.6-32.2) pg MCHC (32.2-35.5) g/dL RDW (11.7-14.4) % Plt Count (182-369) x10^3/uL MPV (9.4-12.3) fL Gran % (34.0-71.1) % Immature Gran % (Auto) (0.001-0.429) % Nucleat RBC Rel Count (0.00-0.2) % Eos # (Auto) (0.04-0.36) x10^3/uL Immature Gran # (Auto) (0.001-0.031) x10^3u/L Absolute Lymphs (auto) (1.18-3.74) x10^3/uL Absolute Monos (auto) (0.24-0.86) x10^3/uL Absolute Nucleated RBC (0.00-0.012) x10^3u/L Lymphocytes % (19.3-51.7) % Monocytes % (4.7-12.5) % Eosinophils % (0.7-5.8) % Basophils % (0.1-1.2) % Absolute Granulocytes (1.56-6.13) x10^3/uL Basophils # (0.01-0.08) x10^3/uL Sodium (135-145) mmol/L Potassium (3.5-5.1) mmol/L Chloride (98-107) mmol/L Carbon Dioxide (22-30) mmol/L Anion Gap (5-15) MEQ/L BUN (7-17) mg/dL Creatinine (0.52-1.04) mg/dL Estimated GFR ML/MIN Glucose (74-106) mg/dL Lactic Acid 1.8 (0.4-2.0) Calcium (8.4-10.2) mg/dL Magnesium (1.6-2.3) mg/dL Total Bilirubin (0.2-1.3) mg/dL AST (14-36) U/L ALT (0-35) U/L Alkaline Phosphatase (38-126) U/L Troponin I (0.000-0.033) ng/mL NT-Pro-B Natriuret Pep (<300) pg/mL Serum Total Protein (6.3-8.2) g/dL Albumin (3.5-5.0) g/dL Serum HCG, Qual NEGATIVE (NEGATIVE) Influenza Type A Ag NEGATIVE (NEGATIVE) Influenza Type B Ag NEGATIVE (NEGATIVE) RSV (PCR) NEGATIVE (NEGATIVE) SARS-CoV-2 (PCR) NEGATIVE (NEGATIVE) 10/10/24 10/10/24 10/10/24 Range/Units 13:06 13:06 13:06 WBC 8.8 (3.98-10.04) x10^3/uL RBC 4.68 (3.93-5.22) x10^6/uL Hgb 14.3 (11.2-15.7) g/dL Hct 40.4 (34.1-44.9) % MCV 86.3 (79.4-94.8) fL MCH 30.6 (25.6-32.2) pg MCHC 35.4 (32.2-35.5) g/dL RDW 14.3 (11.7-14.4) % Plt Count 251 (182-369) x10^3/uL MPV 10.0 (9.4-12.3) fL Gran % 67.2 (34.0-71.1) % Immature Gran % (Auto) 0.5 H (0.001-0.429) % Nucleat RBC Rel Count 0.0 (0.00-0.2) % Eos # (Auto) 0.26 (0.04-0.36) x10^3/uL Immature Gran # (Auto) 0.04 H (0.001-0.031) x10^3u/L Absolute Lymphs (auto) 2.01 (1.18-3.74) x10^3/uL Absolute Monos (auto) 0.54 (0.24-0.86) x10^3/uL Absolute Nucleated RBC 0.00 (0.00-0.012) x10^3u/L Lymphocytes % 22.8 (19.3-51.7) % Monocytes % 6.1 (4.7-12.5) % Eosinophils % 2.9 (0.7-5.8) % Basophils % 0.5 (0.1-1.2) % Absolute Granulocytes 5.93 (1.56-6.13) x10^3/uL Basophils # 0.04 (0.01-0.08) x10^3/uL Sodium 136 (135-145) mmol/L Potassium 3.3 L (3.5-5.1) mmol/L Chloride 103 (98-107) mmol/L Carbon Dioxide 26 (22-30) mmol/L Anion Gap 10.6 (5-15) MEQ/L BUN 5 L (7-17) mg/dL Creatinine 0.72 (0.52-1.04) mg/dL Estimated GFR 105.0 ML/MIN Glucose 130 H (74-106) mg/dL Lactic Acid (0.4-2.0) Calcium 8.9 (8.4-10.2) mg/dL Magnesium 1.7 (1.6-2.3) mg/dL Total Bilirubin 0.50 (0.2-1.3) mg/dL AST 23 (14-36) U/L ALT 19 (0-35) U/L Alkaline Phosphatase 58 (38-126) U/L Troponin I < 0.012 (0.000-0.033) ng/mL NT-Pro-B Natriuret Pep 133 (<300) pg/mL Serum Total Protein 6.7 (6.3-8.2) g/dL Albumin 4.0 (3.5-5.0) g/dL Serum HCG, Qual (NEGATIVE) Influenza Type A Ag (NEGATIVE) Influenza Type B Ag (NEGATIVE) RSV (PCR) (NEGATIVE) SARS-CoV-2 (PCR) (NEGATIVE) - Progress Progress: improved Progress Note: 10/10/24 16:06 44-year-old is evaluated in the ER for lightheadedness with some palpitations. Patient was nauseated. She is given fluids and symptomatic treatment with meclizine, on reevaluation her symptoms are resolved. She has negative orthostatics. EKG is normal sinus rhythm with no acute ischemic changes and negative troponin. Normal white count, chemistries fairly unremarkable. Chest x-ray negative for any acute cardiopulmonary findings reviewed by me with pending official read. CT head is negative for any acute findings. Patient has nonfocal neuroexam throughout stay in the ER. Her symptoms could be viral etiology, has negative COVID and flu. Recommended increase hydration, do not think patient needs to be admitted, stable for discharge. Discussed signs symptoms of worsening needing return to ER which she seems understanding. Counseled pt/family regarding: lab results, diagnosis, need for follow-up, rad results Medical Desision Making - Diagnostic Testing Diagnostic test were ordered, analyzed, and reviewed by me: Yes Radiological Interpretation: Interpreted by me, Reviewed by me, Teleradiologist Report - Risk of complications The pt has a mod risk of morbidity or mortality based on: Need for prescription drug management - Departure Departure Disposition: Home Clinical Impression: Lightheaded Condition: Stable Critical Care Time: No Referrals: MARK ROB [Primary Care Provider] - Follow up/PCP as directed
[2024-10-10 13:28] LABS: HCG SERUM TEST NEGATIVE (NEGATIVE)
[2024-10-10 13:39] LABS: ANION GAP 10.6 MEQ/L (5-15); BILIRUBIN,TOTAL 0.5 mg/dL (0.2-1.3); Calcium 8.9 mg/dL (8.4-10.2); Creatinine 1 0.72 mg/dL (0.52-1.04); MAGNESIUM 1.7 mg/dL (1.6-2.3); Potassium 3.3 mmol/L (3.5-5.1); Total Protein 6.7 g/dL (6.3-8.2)
--- NOTE | 2024-10-10 14:23 | XRAY ---
CLINICAL HISTORY: dizziness COMPARISON: prior 08/24/2024. TECHNIQUE: An axial non-contrast CT scan of the brain was performed from the skull base to the high parietal region. One of the following dose-reduction techniques was utilized for this exam. Automated exposure control, adjustment of the mA and/or kV according to patient size, and use of iterative reconstruction. FINDINGS: Brain Parenchyma: Bilateral ill-defined subcortical hypodensities are noted at both fronto-parietal regions, with no mass effect. Normal attenuation of the cerebellum, and brainstem. No evidence of acute infarct, hemorrhage, or mass effect. No abnormal areas of hyperattenuation. Ventricular System: Ventricles are normal in size and configuration. No evidence of hydrocephalus or ventricular enlargement. Subarachnoid Spaces: Normal sulci and cisterns. No evidence of subarachnoid hemorrhage or extra-axial fluid collections. Cerebellum and Brainstem: Normal size and density. No masses, or lesions. Orbits: Normal appearance of the globes, optic nerves, and extraocular muscles. No evidence of orbital masses. Sinuses: Bilateral ethmoidal moderate mucosal thickening. Small sphenoid sinus mucous retention cyst. Mastoid Air Cells: Clear mastoid air cells. No evidence of mastoiditis. Skull and Meninges: Normal skull morphology. IMPRESSION: 1. Unchanged Bilateral ill-defined subcortical hypodensities are noted at both fronto-parietal regions, with no mass effect, and could be old ischemic. MRI assessment is advised for better evaluation. 2. No fracture lines. No parenchyma or extra-axial fresh blood density. 3. Bilateral ethmoidal moderate mucosal thickening.Small sphenoid sinus mucous retention cyst. [facility] ER was called at [phone] at 1:16 PM [employer], 10/10/2024 and Brooke (Nurse) was informed about the Negative Stroke results. Electronically Signed by: Freddie Valencia MD. (10/10/2024 14:19:16 EST)
[2024-10-10 15:44] LABS: INFLUENZA A NEGATIVE (NEGATIVE); INFLUENZA B NEGATIVE (NEGATIVE); RESPIRATORY SYNCTIAL VIRUS NEGATIVE (NEGATIVE); SARS-CoV-2 Xpert Express NEGATIVE (NEGATIVE)
[2024-10-10 16:13] VITALS: BP 129/82; PULSE 66; RESP 18; O2SAT 97
--- NOTE | 2024-10-10 23:37 | XRAY ---
Indication: Lightheaded. Comparison: August 19, 2024 Portable chest again hyperinflated and clear. Heart not enlarged. Bony thorax intact. No new/acute findings.
== END 2024-10-10 16:13 | disposition home or self-care (01) ==
LOC: ED 12:26
DX: R42 Dizziness and giddiness (principal); R11.0 Nausea; Z79.899 Other long term (current) drug therapy; Z72.0 Tobacco use
CPT/HCPCS: 0241U; 36415; 70450; 71045; 80053; 83605; 83735; 83880; 84484; 84703; 85025; 93005; 93041; 96360; 99284; A9270-GY

== ENCOUNTER 2025-03-24 10:09 | Day surgery (SDC) | payer BC ==
[2025-03-24] MEDS ORDERED: Marcaine Mpf 0.5% Vial 30 Ml IJ ONE (10:10)
[2025-03-24] MEDS ORDERED: XYLOCAINE 1% HCL 20 ML MDV IJ ONE (10:10)
[2025-03-24 10:49] LABS: HCG URINE TEST NEGATIVE (NEGATIVE)
[2025-03-24] MEDS ORDERED: propofoL IV ONE ×2 (11:56→12:08)
[2025-03-24] MEDS ORDERED: Xylocaine-Mpf 2% 5 Ml Vial ONE (12:02)
[2025-03-24] MEDS ORDERED: Lactated Ringers 1,000 ML IV ONE (12:24)
--- NOTE | 2025-03-24 13:26 | XRAY ---
Indication: Left C2-C4 RFA. Intraoperative fluoroscopy provided for 22 seconds. 2 digital spot images submitted for interpretation demonstrates posterior needle tips projecting over expected left C2-C4 nerve roots. Correlate with intraoperative findings/report.
--- NOTE | 2025-03-24 13:34 | XRAY ---
22 seconds of fluoroscopy was used in surgery for a left C2-C4 RFA.
== END 2025-03-24 12:38 | disposition home or self-care (01) ==
LOC: SDC-PAIN 10:09
PROVIDERS: ATTEND Psychiatry & Neurology Pain Medicine
DX: M47.812 Spondylosis without myelopathy or radiculopathy, cervical region (principal)

== ENCOUNTER 2025-07-14 11:02 | Day surgery (SDC) | payer BC ==
[2025-07-14] MEDS ORDERED: Sodium Chloride 0.9(Preservative Free) 10 ML IJ ONE (11:03)
[2025-07-14 12:29] LABS: HCG URINE TEST NEGATIVE (NEGATIVE)
[2025-07-14] MEDS ORDERED: Lactated Ringers 1,000 ML IV ONE (13:45)
[2025-07-14] MEDS ORDERED: propofoL IV ONE (14:00)
--- NOTE | 2025-07-14 15:14 | XRAY ---
Indication: Left L4-S1 transforaminal LISSA. Intraoperative fluoroscopy provided for 25 seconds. 3 digital spot image submitted for interpretation demonstrates posterior needle tips projecting over expected left L4 and L5 nerve roots. Small amount of contrast injected for needle tip placement. Correlate with intraoperative findings/report.
--- NOTE | 2025-07-14 15:16 | XRAY ---
25 seconds of fluoroscopy was used in surgery for a left L4-S1 transforaminal LISSA.
== END 2025-07-14 14:35 | disposition home or self-care (01) ==
LOC: SDC-PAIN 11:02
PROVIDERS: ATTEND Psychiatry & Neurology Pain Medicine
DX: M54.16 Radiculopathy, lumbar region (principal)